=== PATIENT | male | born 1965 | race Caucasian/White ===

== ENCOUNTER 2019-01-11 17:01 | Inpatient (IN) | payer OTHER ==
[~2019-01-11] VITALS: Ht 167.6 cm; Wt 88.6 kg
[~2019-01-11 17:01] MED LIST: ACETAMINOPHEN325 M1 PO; ADULT LOW DOSE81 MG PO; ALBUTEROL NEB; ASA81BEC PO; BENTYL 10 MG CA10 M1 PO; BENTYL 20 MG TA20 M1 PO; COLACE100 MG PO; DIPHENHYDRAMINE25 M3 PO; FIORICET 50-321 EACH PO; FLEXERIL PO; IMITREX 25 MG T25 M1 SUBLING; LOPRESSOR; LOPRESSOR25 PO; MAXALT10 MG PO; PAPAYA ENZYME1 EAC1 PO; PRILOSEC 20 MG20 MG PO; REMERON15 MG PO; TOPROL XL50 MG PO; TRAZODONE 100 MG PO; TYLENOL325 MG PO; WELLBUTRIN XL150 MG PO; XANAX 0.25 MG0.25 MG PO
[2019-01-11 17:05] VITALS: BP 137/103
[2019-01-11] MEDS ORDERED: TOPROL XL100 MG PO (17:19)
[2019-01-11] MEDS ORDERED: TRAZODONE HCL100 MG PO (17:20)
[2019-01-11 17:30] LABS: ABSOLUTE BASOPHILS 0.1 thou/uL (0.0-0.2); ABSOLUTE EOSINOPHILS 0.1 thou/uL (0.0-0.7); ABSOLUTE LYMPHOCYTES 2.6 thou/uL (0.8-5.3); ABSOLUTE MONOCYTES 0.5 thou/uL (0.0-1.2); ABSOLUTE NEUTROPHILS 3.4 thou/uL (1.6-8.1); BASOPHILS 0.9 %; EOSINOPHILS 2.1 %; HEMATOCRIT 45.7 % (42.0-52.0); HEMOGLOBIN 15.6 gm/dL (14.0-18.0); LYMPHOCYTES 38.7 %; MCH 33.1 pg (26.0-34.0); MCHC 34.1 g/dL (28.0-37.0); MCV 97.2 fL (80.0-100.0); MONOCYTES 7.8 %; MPV 7.7 fl. (7.2-11.1); NUCLEATED RBCS 0 /100WBC; PLATELET COUNT* 228 thou/uL (150-400); POLYS 50.5 %; RBC 4.71 mil/uL (4.50-6.00); RDW-CV 14.2 % (10.5-14.5); WBC 6.7 thou/uL (4.0-11.0)
[2019-01-11] MEDS ORDERED: WELLBUTRIN 100100 MG PO (17:36)
[2019-01-11] MEDS ORDERED: RIZATRIPTAN10 MG PO (17:36)
[2019-01-11] MEDS ORDERED: ARNUITY ELLIP200 MCG INH (17:36)
[2019-01-11 17:48] LABS: APTT 28.6 Seconds (25.0-31.3); PROTIME 10.1 Seconds (9.20-11.50)
[2019-01-11 17:56] LABS: ALBUMIN 3.6 g/dL (3.4-5.0); ALKALINE PHOSPHATASE 58 U/L (46-116); ANION GAP 11 mmol/L (7-16); BUN 18 mg/dL (7-18); CHLORIDE 106 mmol/L (98-107); CK-MB MASS 0.8 ng/mL (<0.5-3.6); CO2 23 mmol/L (21-32); GLUCOSE 163 mg/dL (70-99); LIPASE 245 U/L (73-393); MAGNESIUM 1.9 mg/dL (1.8-2.4); NT-PRO BRAIN NAT PEPTIDE 120 pg/mL (<300); SODIUM 140 mmol/L (136-145); TOTAL BILIRUBIN 0.2 mg/dL (<0.1-1.0); TOTAL PROTEIN 7.1 g/dL (6.4-8.2); TROPONIN-I LEVEL <0.06 ng/mL (<0.06)
[2019-01-11 18:29] LABS: CALCIUM 8.7 mg/dL (8.5-10.1); SGPT 31 U/L (30-65)
[2019-01-11 18:52] LABS: SGOT 19.2 U/L (15-37)
[2019-01-11 19:44] VITALS: BP 131/81
[2019-01-11 20:00] VITALS: BP 119/74
[2019-01-11] MEDS ORDERED: XARELTO20 MG PO (22:06)
[2019-01-11] MEDS ORDERED: FLECAINIDE ACET50 M1 PO (22:07)
[2019-01-11] MEDS ORDERED: TRAZODONE HCL50 MG PO (22:07)
[2019-01-11] MEDS ORDERED: TOPROL XL25 MG PO (22:08)
[2019-01-12 00:37] VITALS: BP 116/80
[2019-01-12 04:59] VITALS: BP 100/67
[2019-01-12 05:00] LABS: ABSOLUTE EOSINOPHILS 0.1 thou/uL (0.0-0.7); ABSOLUTE LYMPHOCYTES 3.1 thou/uL (0.8-5.3); ABSOLUTE MONOCYTES 0.6 thou/uL (0.0-1.2); ABSOLUTE NEUTROPHILS 3.5 thou/uL (1.6-8.1); BASOPHILS 0.4 %; EOSINOPHILS 1.8 %; HEMATOCRIT 43.7 % (42.0-52.0); HEMOGLOBIN 14.8 gm/dL (14.0-18.0); LYMPHOCYTES 42.3 %; MCH 32.5 pg (26.0-34.0); MCHC 33.8 g/dL (28.0-37.0); MCV 96.2 fL (80.0-100.0); MONOCYTES 8.2 %; MPV 7.7 fl. (7.2-11.1); NUCLEATED RBCS 0 /100WBC; PLATELET COUNT* 227 thou/uL (150-400); POLYS 47.3 %; RBC 4.54 mil/uL (4.50-6.00); RDW-CV 13.9 % (10.5-14.5); WBC 7.4 thou/uL (4.0-11.0)
[2019-01-12 05:27] LABS: CALCIUM 8.9 mg/dL (8.5-10.1); POTASSIUM 4.1 mmol/L (3.5-5.1)
--- NOTE | 2019-01-12 07:06 | NUR ---
REPORT RECIEVED FROM ER. PT ORIENTED TO ROOM, CALL LIGHT SHOWN, FALL AGREEMENT WENT OVER. PT STATED UNDERSTANDING. ADMISSION DOCUMENTED. TELE MONITOR IN PLACE. WENDYM DRIP RUNNING. WILL CONTINUE WITH PLAN OF CARE.
[2019-01-12 08:00] VITALS: BP 113/63
--- NOTE | 2019-01-12 10:53 | NUR ---
ASSUMED CARE OF PATIENT THIS AM AT 0730. PATIENT IS ALERT AND ORIENTED X 4. HE DENIES CHEST PAIN AND SOA. TELE SHOWS AFIB WITH A RATE OF 80 TO 90. CARDIOLOGY NURSE IN TO ROUND AND PATIENT ALLOWED TO EAT BREAKFAST. CARDIZEM GTT IS INFUSING AT 3ML/HR. HE HAS BEEN UP AD KIERAN IN THE ROOM. WILL CONTINUE TO MONITOR HR AND RHYTHM.
[2019-01-12 12:00] VITALS: BP 117/87
[2019-01-12 16:44] VITALS: BP 117/87
--- NOTE | 2019-01-12 17:00 | NUR ---
SW met with pt to complete initial assessment. Pt alert, oriented, pleasant. Pt lives at home alone and is independent in ADLs and mobility. Pt has friend and girlfriend who are supportive. Pt works. Pt did not express any dc needs at this time.
[2019-01-12] MEDS ORDERED: FLECAINIDE ACE150 MG PO (17:07)
--- NOTE | 2019-01-12 18:14 | EKG ---
[place] [address] ELECTROCARDIOGRAM REPORT Name: VIC HOLDEN Room: [address] M.R.#: [id number] Admission: 01/11/19 Attend Phys: Krishna Herman MD Discharge: 01/12/19 Date of : 65 Report #: [id number] THIS REPORT FOR: //name// [facility] ED Test Date: 2019-01-11 Test Time: 17:04:47 Pat Name: VIC ADINA Department: Room: [facility] Gender: M Inspector Tubes: LITZY : 1965 Requested By: Ulisses Chavez Order Number: [id number] MD: Serafin Salguero Measurements Intervals [place] Rate: 116 P: LA: QRS: 35 QRSD: 90 T: 2 QT: 320 QTc: 445 Interpretive Statements Atrial fibrillation Abnormal inferior Q waves Compared to ECG 05/18/2013 14:20:00 Inferior Q waves now present Q waves now present Electronically Signed On 01-12-2019 18:13:48 CDT by Serafin Salguero [email or web address] <ELECTRONICALLY SIGNED> By: Serafin Salguero MD, FACC 01/12/19 1813 1704 1704 Serafin Salguero MD, [facility] /EPI
== END 2019-01-12 17:55 | disposition home or self-care (01) | DRG 309 ==
LOC: M.ERS 17:01 → M.2W 18:11 → M.TBA-ER 18:11 → M.2W 19:55
PROVIDERS: Family Medicine; ADMIT Internal Medicine
DX: I48.0 Paroxysmal atrial fibrillation (principal); I24.8 Other forms of acute ischemic heart disease; K21.9 Gastro-esophageal reflux disease without esophagitis; E78.5 Hyperlipidemia, unspecified; I48.91 Unspecified atrial fibrillation; I10 Essential (primary) hypertension; J45.909 Unspecified asthma, uncomplicated; K58.9 Irritable bowel syndrome, unspecified; G43.909 Migraine, unspecified, not intractable, without status migrainosus; Z90.49 Acquired absence of other specified parts of digestive tract; Z86.73 Personal history of transient ischemic attack (TIA), and cerebral infarction without residual deficits; Z86.718 Personal history of other venous thrombosis and embolism; Z79.51 Long term (current) use of inhaled steroids; Z79.82 Long term (current) use of aspirin; Z79.899 Other long term (current) drug therapy; Z88.5 Allergy status to narcotic agent

== ENCOUNTER → 2019-02-11 | Outpatient (CLI) | payer OTHER ==
[2019-02-11] VITALS (13 sets, daily range): BP systolic 89–115; BP diastolic 42–76
[~2019-02-11] MED LIST changes: +ARNUITY ELLIP200 MCG INH; +AUGMENTIN 875-1 EACH PO; +FLECAINIDE ACE150 MG PO; +FLECAINIDE ACET50 M1 PO; +LORCET 5-325 M1 EACH PO; +MAXALT MLT10 MG PO; +PANTOPRAZOLE SO40 M1 PO; +RIZATRIPTAN10 MG PO; +TAMBOCOR 100 M100 M1 PO; +TOPROL XL100 MG PO; +TOPROL XL25 MG PO; +TRAZODONE HCL100 MG PO; +TRAZODONE HCL50 MG PO; +WELLBUTRIN 100100 MG PO; +XARELTO20 MG PO
[2019-02-11 13:37] LABS: CALCIUM 9.3 mg/dL (8.5-10.1); CREATININE 1.1 mg/dL (0.6-1.3); POTASSIUM 4.1 mmol/L (3.5-5.1)
[2019-02-11 13:42] LABS: TOTAL BILIRUBIN 0.4 mg/dL (<0.1-1.0)
--- NOTE | 2019-02-11 17:02 | TEE ---
[place] [address] TRANSESOPHAGEAL ECHOCARDIOGRAM Name: VIC HOLDEN Room: [facility]#: [id number] Admission: 02/11/19 Attend Phys: Kory Sanchez Discharge: Date of : 65 Date of Service: 02/11/19 1702 Report #: [id number] THIS REPORT FOR: //name// APPROVED REPORT Study performed: 02/11/2019 13:06:48 EXAM: Transesophageal Echocardiogram Patient Location: Out-Patient Status: routine BSA: 2.02 HR: 66 bpm BP: 124/88 mmHg Rhythm: NSR Other Information Study Quality: Good Indications PRE-ABLATION Echo Enhancing Agent Indication: Rule out Shunt Agent(s) / Amount(s) Used: Agitated Saline 20 cc Comments: 2 BUBBLE STUDIES Procedure After obtaining informed consent, patient underwent transesophageal echo in the [facility]. Type of Sedation : Conscious Sedation Sedation was administered by Nurys Rose RN. Sedation start time: 1345 Case end Time: 1405 Sedation was achieved intravenously with: Versed (6) Fentanyl (100) Transesophageal probe was inserted and advanced into esophagus without difficulty by Shyam Aguilar MD, FACC. Echo enhancement indication: R/O Septal defect. Echo enhancement agent administered: Agitated Saline The HENRY was performed without complications. Throughout the procedure, the blood pressure, pulse oximetry, cardiac rhythm, and rate were monitored. The patient tolerated the procedure without adverse effects. Recovery from conscious sedation was uneventful [place] [address] TRANSESOPHAGEAL ECHOCARDIOGRAM Name: VIC HOLDEN [id number] Admission: 02/11/19 Attend Phys: Kory Menezeschonncathy Discharge: Date of : 65 Date of Service: 02/11/19 1702 Report #: [id number] Left Ventricle The left ventricle is normal size. There is normal LV segmental wall motion. There is normal left ventricular wall thickness. Left ventricular systolic function is normal. The left ventricular ejection fraction is within the normal range. LVEF is 55-60%. Right Ventricle The right ventricle is normal size. The right ventricular systolic function is normal. Atria The left atrium size is normal. No thrombus is visualized in the left atrium or appendage. Interatrial septum is intact without evidence of ASD or PFO. The right atrium size is normal. Aortic Valve The aortic valve is normal in structure. No aortic regurgitation is present. There is no aortic valvular stenosis. Mitral Valve The mitral valve is normal in structure. Trace mitral regurgitation. No evidence of mitral valve stenosis. Tricuspid Valve The tricuspid valve is normal in structure. There is no tricuspid valve regurgitation noted. Pulmonic Valve The pulmonary valve is normal in structure. There is no pulmonic valvular regurgitation. Great Vessels The aortic root is normal in size. Pericardium There is no pericardial effusion. <Conclusion> LVEF is 55-60%. The left atrium size is normal. No thrombus is visualized in the left atrium or [address] [address] TRANSESOPHAGEAL ECHOCARDIOGRAM Name: VIC HOLDEN [id number] Admission: 02/11/19 Attend Phys: [facility] Discharge: Date of : 65 Date of Service: 02/11/191701 Report #: [id number] appendage. Interatrial septum is intact without evidence of ASD or PFO. <ELECTRONICALLY SIGNED> By: Shyam Aguilar MD, FACC 02/11/191701 01 01 Shyam Aguilar MD, FACC /INF
== END | disposition home or self-care (01) ==
LOC: M.CL 11:43 → M.LAB 15:00 → M.CT 16:00
PROVIDERS: Internal Medicine Cardiovascular Disease
DX: I48.91 Unspecified atrial fibrillation (principal); Z88.8 Allergy status to other drugs, medicaments and biological substances; Z79.82 Long term (current) use of aspirin; Z79.899 Other long term (current) drug therapy

== ENCOUNTER 2019-02-22 04:39 | Emergency (ER) | payer OTHER ==
[~2019-02-22] VITALS: Ht 167.6 cm; Wt 91.2 kg
[~2019-02-22 04:39] MED LIST changes: -AUGMENTIN 875-1 EACH PO; -LORCET 5-325 M1 EACH PO; -MAXALT MLT10 MG PO; -PANTOPRAZOLE SO40 M1 PO; -TAMBOCOR 100 M100 M1 PO
[2019-02-22 05:27] LABS: ABSOLUTE BASOPHILS 0.1 thou/uL (0.0-0.2); ABSOLUTE EOSINOPHILS 0.1 thou/uL (0.0-0.7); ABSOLUTE LYMPHOCYTES 1.9 thou/uL (0.8-5.3); ABSOLUTE MONOCYTES 0.6 thou/uL (0.0-1.2); ABSOLUTE NEUTROPHILS 3.8 thou/uL (1.6-8.1); BASOPHILS 0.9 %; EOSINOPHILS 2.3 %; HEMATOCRIT 44.9 % (42.0-52.0); HEMOGLOBIN 15.3 gm/dL (14.0-18.0); LYMPHOCYTES 29.4 %; MCH 32.7 pg (26.0-34.0); MCV 96.2 fL (80.0-100.0); MONOCYTES 9.8 %; MPV 7.5 fl. (7.2-11.1); NUCLEATED RBCS 0 /100WBC; PLATELET COUNT* 235 thou/uL (150-400); POLYS 57.6 %; RBC 4.67 mil/uL (4.50-6.00); RDW-CV 13.6 % (10.5-14.5); WBC 6.6 thou/uL (4.0-11.0)
[2019-02-22 05:35] LABS: INFLUENZA A ANTIGEN Negative (Negative); INFLUENZA B ANTIGEN Negative (Negative)
[2019-02-22 05:39] LABS: CALCIUM 9.4 mg/dL (8.5-10.1); CREATININE 1.2 mg/dL (0.6-1.3); POTASSIUM 4.1 mmol/L (3.5-5.1)
[2019-02-22 05:45] LABS: INR 1.2; PROTIME 12.1 Seconds (9.20-11.50)
[2019-02-22 05:46] LABS: ALBUMIN 3.8 g/dL (3.4-5.0); TOTAL BILIRUBIN 0.4 mg/dL (<0.1-1.0); TOTAL PROTEIN 7.5 g/dL (6.4-8.2)
[2019-02-22] MEDS ORDERED: AUGMENTIN 875-1 EACH PO (06:21)
[2019-02-22] MEDS ORDERED: LORCET 5-325 M1 EACH PO (06:21)
[2019-02-22 06:39] VITALS: BP 115/82
--- NOTE | 2019-02-22 13:35 | EKG ---
[place] [address] ELECTROCARDIOGRAM REPORT Name: VIC HOLDEN [id number] Admission: 02/22/19 Attend Phys: Discharge: 02/22/19 Date of : 65 Report #: [id number] THIS REPORT FOR: //name// [facility] ED Test Date: 2019-02-22 Test Time: 04:46:10 Pat Name: VICMABEL HOLDEN Department: Room: Gender: M Advertising Associate: JEAN CLAUDE : 1965 Requested By: Yaneli Cee Order Number: [id number] MD: Serafin Salguero Measurements Intervals [place] Rate: 77 P: 45 AR: 211 QRS: 2 QRSD: 103 T: 14 QT: 395 QTc: 448 Interpretive Statements Sinus rhythm Prolonged AR interval Baseline wander in lead(s) V1,V2,V3 Compared to ECG 01/11/2019 17:04:47 First degree AV block now present Atrial fibrillation no longer present Inferior Q waves no longer present Q waves no longer present Electronically Signed On 02-22-2019 13:35:40 CDT by Serafin Salguero [email or web address] <ELECTRONICALLY SIGNED> By: Serafin Salguero MD, FACC 02/22/19 1335 0446 0446 Serafin Salguero MD, FAC /EPI
[2019-03-03] MEDS ORDERED: ARNUITY ELLIP200 MCG INH (07:28)
[2019-03-03] MEDS ORDERED: MAXALT MLT10 MG PO (07:29)
[2019-03-03] MEDS ORDERED: TRAZODONE HCL50 MG PO (07:30)
[2019-03-04] MEDS ORDERED: TAMBOCOR 100 M100 M1 PO (07:50)
[2019-03-04] MEDS ORDERED: PANTOPRAZOLE SO40 M1 PO (08:17)
== END 2019-02-22 06:39 | disposition home or self-care (01) ==
LOC: M.ERS 04:39
PROVIDERS: Emergency Medicine
DX: J06.9 Acute upper respiratory infection, unspecified (principal); I48.91 Unspecified atrial fibrillation; I10 Essential (primary) hypertension; J45.909 Unspecified asthma, uncomplicated; K58.9 Irritable bowel syndrome, unspecified; G43.909 Migraine, unspecified, not intractable, without status migrainosus; Z90.49 Acquired absence of other specified parts of digestive tract; Z90.89 Acquired absence of other organs; Z90.79 Acquired absence of other genital organ(s); Z88.5 Allergy status to narcotic agent

== ENCOUNTER 2019-11-11 21:28 | Emergency (ER) | payer OTHER ==
[~2019-11-11] VITALS: Ht 170.2 cm; Wt 95.3 kg
[~2019-11-11 21:28] MED LIST changes: +AUGMENTIN 875-1 EACH PO; +LORCET 5-325 M1 EACH PO; +MAXALT MLT10 MG PO; +PANTOPRAZOLE SO40 M1 PO; +TAMBOCOR 100 M100 M1 PO; +ZYRTEC10 M5 PO
[2019-11-11] MEDS ORDERED: DESYREL150 MG PO (21:32)
[2019-11-11 21:52] LABS: ABSOLUTE BASOPHILS 0.1 thou/uL (0.0-0.2); ABSOLUTE EOSINOPHILS 0.2 thou/uL (0.0-0.7); ABSOLUTE LYMPHOCYTES 2.9 thou/uL (0.8-5.3); ABSOLUTE MONOCYTES 0.6 thou/uL (0.0-1.2); ABSOLUTE NEUTROPHILS 3.3 thou/uL (1.6-8.1); BASOPHILS 0.8 %; EOSINOPHILS 2.2 %; HEMATOCRIT 45.2 % (42.0-52.0); HEMOGLOBIN 15.7 gm/dL (14.0-18.0); LYMPHOCYTES 41.9 %; MCHC 34.7 g/dL (28.0-37.0); MCV 95.1 fL (80.0-100.0); MONOCYTES 8.7 %; MPV 7.7 fl. (7.2-11.1); NUCLEATED RBCS 0 /100WBC; PLATELET COUNT* 214 thou/uL (150-400); POLYS 46.4 %; RBC 4.76 mil/uL (4.50-6.00); RDW-CV 13.4 % (10.5-14.5)
[2019-11-11 22:00] LABS: CALCIUM 8.6 mg/dL (8.5-10.1); CREATININE 1.5 mg/dL (0.6-1.3); POTASSIUM 3.9 mmol/L (3.5-5.1)
[2019-11-11 22:05] LABS: ALBUMIN 3.9 g/dL (3.4-5.0); TOTAL BILIRUBIN 0.2 mg/dL (<0.1-1.0); TOTAL PROTEIN 7.7 g/dL (6.4-8.2)
[2019-11-11 22:33] LABS: URINE BILIRUBIN NEGATIVE (Negative); URINE BLOOD TRACE (Negative); URINE CLARITY CLEAR; URINE COLOR YELLOW; URINE GLUCOSE-RANDOM 1+ (Negative); URINE KETONES NEGATIVE (Negative); URINE LEUKOCYTES-REFLEX NEGATIVE (Negative); URINE NITRITE-REFLEX NEGATIVE (Negative); URINE PROTEIN NEGATIVE (Negative); URINE SPECIFIC GRAVITY >= 1.030 (1.005-1.030); URINE UROBILINOGEN 0.2 E.U./dl (0.2-1.0)
[2019-11-11] MEDS ORDERED: OTHER MISCELL (22:43)
[2019-11-11 22:51] VITALS: BP 119/84
--- NOTE | 2019-11-12 09:53 | EKG ---
[place] [address] ELECTROCARDIOGRAM REPORT Name: VIC HOLDEN Room: [facility]#: [id number] Admission: 11/11/19 Attend Phys: Discharge: 11/11/19 Date of : 65 Date of Service: 11/11/192131 Report #: [id number] THIS REPORT FOR: //name// [facility] ED Test Date: 2019-11-11 Test Time: 21:32:23 Pat Name: VIC HOLDEN Department: Room: Gender: Multimedia Developer: : 1965 Requested By: Sapna Beckham Order Number: [id number] MD: Shyam Aguilar Measurements Intervals [place] Rate: 109 P: 60 [place]: 151 QRS: 13 QRSD: 99 T: 21 QT: 326 QTc: 440 Interpretive Statements Sinus tachycardia Inferior infarct, old Baseline wander in lead(s) V2 Compared to ECG 02/22/2019 04:46:10 Sinus rhythm no longer present First degree AV block no longer present Electronically Signed On 11-12-2019 9:52:51 CDT by Shyam Aguilar [email or web address] <ELECTRONICALLY SIGNED> By: Shyam Aguilar MD, [facility] 11/12/19 0952 31 31 Shyam Aguilar MD, [facility] /EPI
== END 2019-11-11 22:51 | disposition home or self-care (01) ==
LOC: M.ERS 21:28
PROVIDERS: Personal Emergency Response Attendant
DX: I10 Essential (primary) hypertension (principal); R73.9 Hyperglycemia, unspecified; I48.91 Unspecified atrial fibrillation; J45.909 Unspecified asthma, uncomplicated; K58.9 Irritable bowel syndrome, unspecified; G43.909 Migraine, unspecified, not intractable, without status migrainosus; Z90.49 Acquired absence of other specified parts of digestive tract; Z86.73 Personal history of transient ischemic attack (TIA), and cerebral infarction without residual deficits; Z98.52 Vasectomy status; Z88.6 Allergy status to analgesic agent

== ENCOUNTER 2020-09-21 14:24 | Emergency (ER) | payer OTHER ==
[~2020-09-21] VITALS: Ht 167.6 cm; Wt 94.8 kg
[~2020-09-21 14:24] MED LIST changes: +DESYREL150 MG PO; +OTHER MISCELL
[2020-09-21] MEDS ORDERED: BUTALB-APAP-CA1 EACH PO (14:45)
[2020-09-21] MEDS ORDERED: NORFLEX100 MG PO (14:46)
[2020-09-21] MEDS ORDERED: BACTRIM DS TAB1 EAC1 PO (14:46)
[2020-09-21] MEDS ORDERED: RIZATRIPTAN10 M1 PO (14:46)
[2020-09-21] MEDS ORDERED: SINGULAIR 10 MG10 M1 PO (14:46)
[2020-09-21] MEDS ORDERED: PROTONIX40 M2 PO (14:46)
[2020-09-21] MEDS ORDERED: SUPER THERAVIT1 EACH PO (14:46)
[2020-09-21] MEDS ORDERED: TYLENOL PM EX-1 EACH PO (14:47)
[2020-09-21] MEDS ORDERED: ONDANSETRON HCL4 M2 PO (14:47)
[2020-09-21 16:33] LABS: ABSOLUTE EOSINOPHILS 0.1 thou/uL (0.0-0.7); ABSOLUTE LYMPHOCYTES 2.8 thou/uL (0.8-5.3); ABSOLUTE MONOCYTES 0.7 thou/uL (0.0-1.2); BASOPHILS 0.5 %; EOSINOPHILS 2.2 %; HEMATOCRIT 45.1 % (42.0-52.0); HEMOGLOBIN 15.4 gm/dL (14.0-18.0); LYMPHOCYTES 41.9 %; MCH 32.8 pg (26.0-34.0); MCHC 34.1 g/dL (28.0-37.0); MCV 96.2 fL (80.0-100.0); MONOCYTES 10.2 %; MPV 7.2 fl. (7.2-11.1); NUCLEATED RBCS 0 /100WBC; PLATELET COUNT* 232 thou/uL (150-400); POLYS 45.2 %; RBC 4.69 mil/uL (4.50-6.00); WBC 6.7 thou/uL (4.0-11.0)
[2020-09-21 16:54] LABS: CALCIUM 8.8 mg/dL (8.5-10.1); POTASSIUM 4.1 mmol/L (3.5-5.1)
[2020-09-21 17:07] LABS: TOTAL BILIRUBIN 0.6 mg/dL (<0.1-1.0)
[2020-09-21 18:42] VITALS: BP 108/56
--- NOTE | 2020-09-22 12:54 | EKG ---
[place] [address] ELECTROCARDIOGRAM REPORT Name: VIC HOLDEN [facility] [id number] Admission: 09/21/20 Attend Phys: Discharge: 09/21/20 Date of : 65 Date of Service: 09/21/20 1621 Report #: [id number] THIS REPORT FOR: //name// [facility] ED Test Date: 2020-09-21 Test Time: 16:21:42 Pat Name: VIC HOLDEN Department: Room: Gender: Mooner: : 1965 Requested By: Onur Tellez Order Number: [id number] MD: Shyam Aguilar Measurements Intervals [place] Rate: 72 P: -2 IA: 155 QRS: 7 QRSD: 105 T: 4 QT: 385 QTc: 422 Interpretive Statements Sinus rhythm ST elev, probable normal early repol pattern Compared to ECG 11/11/2019 21:32:23 ST (T wave) deviation now present Sinus tachycardia no longer present Electronically Signed On 09-22-2020 12:54:01 CDT by Shyam Aguilar [email or web address] <ELECTRONICALLY SIGNED> By: Shyam Aguilar MD, [facility] 09/22/20 1254 1621 1621 Shyam Aguilar MD, [facility] /EPI
== END 2020-09-21 18:43 | disposition home or self-care (01) ==
LOC: M.ERS 14:24
PROVIDERS: Physician Assistant
DX: G43.909 Migraine, unspecified, not intractable, without status migrainosus (principal); I48.91 Unspecified atrial fibrillation; K58.9 Irritable bowel syndrome, unspecified; J45.909 Unspecified asthma, uncomplicated; Z90.49 Acquired absence of other specified parts of digestive tract; Z90.89 Acquired absence of other organs; Z86.73 Personal history of transient ischemic attack (TIA), and cerebral infarction without residual deficits; Z87.01 Personal history of pneumonia (recurrent); Z88.5 Allergy status to narcotic agent

== ENCOUNTER → 2021-03-08 | Outpatient (CLI) | payer OTHER ==
[~2021-03-08] MED LIST changes: +BACTRIM DS TAB1 EAC1 PO; +BUTALB-APAP-CA1 EACH PO; +NORFLEX100 MG PO; +ONDANSETRON HCL4 M2 PO; +PROTONIX40 M2 PO; +RIZATRIPTAN10 M1 PO; +SINGULAIR 10 MG10 M1 PO; +SUPER THERAVIT1 EACH PO; +TYLENOL PM EX-1 EACH PO
== END ==
LOC: M.CT 14:51
PROVIDERS: ATTEND Nurse Practitioner Family
DX: N20.0 Calculus of kidney (principal); K40.20 Bilateral inguinal hernia, without obstruction or gangrene, not specified as recurrent; Z90.49 Acquired absence of other specified parts of digestive tract